=== PATIENT | female | born 1960 | race African-American/Black ===

== ENCOUNTER 2016-05-23 20:09 | Emergency (ER) | payer MEDICARE ==
[~2016-05-23] VITALS: Ht 165.1 cm; Wt 100.0 kg
[~2016-05-23 20:09] MED LIST: ALBU.5I; ALBU17I INH; ASPI81 PO; GLUC1000 PO; INSU1INJ14 SQ; LISI-363 PO; LORA-474 PO; LORT5TAB PO; MONT10TA2 PO; NITR0.4S SL; NOVOLOGP2 SQ; THEO300T31 PO
[2016-05-23 23:11] VITALS: BP 205/94; PULSE 85; RESP 16; O2SAT 94
[2016-05-23] MEDS ORDERED: NOVOINJ3 (23:15)
[2016-05-23] MEDS ORDERED: THEO300T14 PO (23:15)
[2016-05-23] MEDS ORDERED: METF500T PO (23:15)
[2016-05-23] MEDS ORDERED: INSU1INJ14 SQ (23:15)
[2016-05-23] MEDS ORDERED: ASPI81CH CHEW (23:15)
[2016-05-23] MEDS ORDERED: NOVOLOGP2 SQ (23:15)
[2016-05-23] MEDS ORDERED: SODIUM CHLORIDE 0.9% FLUSH 10 ML FLUSH IV FLUSH PRN (23:15)
[2016-05-23] MEDS ORDERED: LORA-474 PO (23:15)
[2016-05-23] MEDS ORDERED: MONT10TA2 PO (23:15)
[2016-05-23] MEDS ORDERED: LISI-515 PO (23:15)
[2016-05-23] MEDS ORDERED: HYDR-3111 PO (23:15)
[2016-05-23 23:16] VITALS: O2SAT 99
[2016-05-23 23:45] LABS: AUTOMATED NEUTROPHIL # 5.7 TH/MM3 (1.8-7.7); BASOPHIL # 0.2 TH/MM3 (0-0.2); BASOPHIL % 2.4 % (0.0-2.0); EOSINOPHIL # 0.5 TH/MM3 (0-0.4); EOSINOPHIL % 5.2 % (0.0-4.0); HEMATOCRIT 36.9 % (35.0-46.0); HEMO FLAGS DIFF FINAL; LYMPH % 27.5 % (9.0-44.0); LYMPHOCYTE # 2.6 TH/MM3 (1.0-4.8); MEAN CORPUSCULAR HEMOGLOBIN 25.8 PG (27.0-34.0); MEAN CORPUSCULAR HGB CONC 32.2 % (32.0-36.0); MONO % 4.7 % (0.0-8.0); NEUT % 60.2 % (16.0-70.0); PLATELET COUNT 247 TH/MM3 (150-450); RED BLOOD COUNT 4.62 MIL/MM3 (4.00-5.30); RED CELL DISTRIBUTION WIDTH 15.1 % (11.6-17.2); WHITE BLOOD COUNT 9.4 TH/MM3 (4.0-11.0)
[2016-05-23 23:49] LABS: BACTERIA, URINE RARE /hpf; BLOOD, URINE NEG (NEG); COMMENT (UR) CULT NOT INDICATED; CULTURE IF INDICATED CULT NOT INDICATED; GLUCOSE,URINE NEG (NEG); KETONE, URINE NEG (NEG); NITRITE,URINE NEG (NEG); PH, URINE 5.5 (5.0-8.5); SQUAMOUS EPITHELIAL CELL URINE 2 /hpf (0-5); URINE COLOR YELLOW (YELLW/STRAW)
[2016-05-23 23:54] LABS: APTT (PATIENT) 32.1 SEC (24.3-30.1)
[2016-05-24 00:06] LABS: ANION GAP 8 MEQ/L (5-15); AST (GOT) 11 U/L (15-37); BICARBONATE 31.9 MEQ/L (21.0-32.0); BLOOD UREA NITROGEN 7 MG/DL (7-18); CHLORIDE 102 MEQ/L (98-107); GLOMERULAR FILTRATION RATE 126 ML/MIN (>89); POTASSIUM 3.6 MEQ/L (3.5-5.1); SODIUM (NA) 142 MEQ/L (136-145)
[2016-05-24 00:09] LABS: ALKALINE PHOSPHATASE 89 U/L (45-117); ALT (GPT) 13 U/L (10-53); TOTAL BILIRUBIN ADULT 0.3 MG/DL (0.2-1.0)
--- NOTE | 2016-05-24 00:18 | PD ---
HPI Chief Complaint: Abdominal Pain Time Seen by Provider: 23:12 Travel History International Travel<30 days: No Contact w/Intl Traveler<30days: No Traveled to known affect area: No History of Present Illness HPI The patient is a 55 year old female who presents to the [facility] emergency department with a history of abdominal pain that began 4-5 days ago and has been gradually getting worse with time. She reports that the pain had been coming and going, however today it is been constant. She reports that it is worse with movement. She reports that is worse with coughing. She reports that she's had a tickle in her throat that induces a cough at times. She reports that the pain as an aching sensation. She reports that it made it difficult to sleep last night. She reports that the pain as a 7 out of 10 at baseline and 10 out of 10 with movement. She reports that over the last month and a half she has had diarrhea. She reports that she normally moves her bowels 4-5 times per day. She reports that she recently saw a GI doctor related to this and is scheduled for upper endoscopy on June 21. She reports that last year she did have an episode of colitis that was treated with medicine. She reports having nausea but no vomiting. He reports that over the last week she has had urinary frequency without dysuria or urinary urgency. The patient denies any congestion, recent fevers, neck pain, chest pain, shortness of breath, or neurologic symptoms. She denies any unusual food intake, foreign travel, recent antibiotic use, or sick contacts. [facility] Past Medical History Narrative Medical The patient's past medical history is significant for asthma, COPD, history of pulmonary edema, history of seizure disorder, history of diabetes mellitus, history of Charcot joint in the left leg for which she is not weightbearing and using a wheelchair, history of being immunosuppressed, anxiety disorder, arthritis, acid reflux, hyperlipidemia, depression, hypertension, nodules and cyst on her thyroid herniated disc in the low back, neuropathy, sleep apnea Arthritis: Yes Asthma: Yes Autoimmune Disease: Yes (IMMUNO SUPPRESSED) Blood Disorders: No Anxiety: Yes Depression: Yes Heart Rhythm Problems: No Cancer: No Cardiovascular Problems: Yes (, PULMONARY EDEMA x1, HX OF HEART CATH) High Cholesterol: Yes Chest Pain: Yes (01/17/11) Congestive Heart Failure: No COPD: Yes Cerebrovascular Accident: No Diabetes: Yes (TYPE II) Patient Takes Glucophage: Yes Diminished Hearing: No Diverticulitis: Yes Endocrine: Yes Gastrointestinal Disorders: Yes (HX OF GERD) GERD: Yes Genitourinary: No Headaches: No Hepatitis: No Hiatal Hernia: No Hypertension: Yes Immune Disorder: Yes ("DEPRESSED" IMMUNE SYSTEM) Kidney Stones: No Medical other: No Musculoskeletal: Yes (BULGING DISCS IN LOWER BACK, PAIN IN HANDS AND WRISTS) Neurologic: Yes (SEIZURES FOR LOW BLOOD SUGAR, NEUROPATHY) Psychiatric: Yes (hx of mild anxiety) Reproductive: Yes (HX OF HYSTERECTOMY LEFT CERVIX remains) Respiratory: Yes (SEVERE ASTHMA, COPD--[facility]ISITS, SLEEP APNEA, CPAP "SOMETIMES") Migraines: No Renal Failure: No Seizures: Yes (LAST SEIZURE DECEMBER 2005) Sleep Apnea: Yes (CPAP AT HOME) Thyroid Disease: Yes (NODULES AND CYSTS ON THYROID--SOMETIMES CAUSE DIFFICULTY SWALLOWING) Ulcer: No PNEUMOCCOCAL Vaccine (Year): 1 ?: Not Menopausal: Yes Past Surgical History Narrative Surgical The patient's past surgical history is significant for an appendectomy, cholecystectomy, appendectomy and adhesion lysis in 1991, 2 prior C-sections, Tesjch-c-Cyoj placement due to poor IV access, history of a nerve block, history of a right rotator cuff repair, history of cardiac catheterization. Abdominal Surgery: Yes (ADHESIONS R/T C-SECTIONS) AICD: No Appendectomy: Yes Body Medical Devices: INFUSAPORT R UPPER CHEST Cardiac Surgery: Yes (CARDIAC CATH) Cholecystectomy: Yes Ear Surgery: No Endocrine Surgery: No Eye Surgery: No Genitourinary Surgery: No Gynecologic Surgery: Yes (2 C-SECTIONS/HYSTERECTOMY 2000) Hysterectomy: Yes Joint Replacement: No Neurologic Surgery: Yes (NERVE BLOCKS) Oral Surgery: No Pacemaker: No Thoracic Surgery: No Other Surgery: Yes Social History Alcohol Use: Yes (occ.) Tobacco Use: No Substance Use: No Allergies-Medications (Allergen,Severity, Reaction): Coded Allergies: Bactroban (Verified Allergy, Severe, 05/23/16) oint caused a rash Cefprozil (Verified Allergy, Severe, RASH, 05/23/16) Darvon (Verified Allergy, Severe, RASH, 05/23/16) Diclofenac (Verified Allergy, Severe, RASH, 05/23/16) Erythromycin (Verified Allergy, Severe, RASH, 05/23/16) Latex (Verified Allergy, Severe, RESPIRATORY DISTRESS, 05/23/16) Penicillin (Verified Allergy, Severe, RESPIRATORY DISTRESS, 05/23/16) Tetracycline (Verified Allergy, Severe, RASH, 05/23/16) Vancomycin (Verified Allergy, Severe, RESPIRATORY DISTRESS, 05/23/16) Zithromax (Verified Allergy, Severe, RSAH, 05/23/16) Reported Meds & Prescriptions Reported Meds & Active Scripts Active Reported Aspirin 81 Mg Chew 162 Mg CHEW DAILY Vicodin (Hydrocodone-Acetaminophen) 5-300 Mg Tab 1 Tab PO Q4H PRN Ativan (Lorazepam) 1 Mg Tab 1 Mg PO DAILY PRN Theophylline Anhydrous ER (Theophylline) 300 Mg Tab 300 Mg PO Q12H Singulair (Montelukast Sodium) 10 Mg Tab 10 Mg PO HS Novolog Inj (Insulin Aspart) 1,000 Unit/10 Ml Vial 0 SQ DIRECTED Sliding Scale as directed. Novolog Flexpen Inj (Insulin Aspart) 300 Unit/3 Ml Pen 8 Units .ROUTE TIDAC Tresiba Flextouch Pen Inj (Insulin Degludec Inj) 300 unit/3 ML Pen 16 Units SQ HS Lisinopril 20 Mg Tab 20 Mg PO HS Metformin (Metformin HCl) 500 Mg Tab 500 Mg PO BIDPC With meals Review of Systems Except as stated in HPI: all other systems reviewed are Neg General / Constitutional: No: Fever Eyes: No: Visual changes HENT: No: Headaches Cardiovascular: No: Chest Pain or Discomfort Respiratory: No: Shortness of Breath Gastrointestinal: Positive: Nausea, Diarrhea, Abdominal Pain, Changes in Bowel Habits, No: Vomiting, Hematemesis, Hematochezia, Constipation, Indigestion, Loss of Appetite Genitourinary: No: Dysuria Musculoskeletal: No: Pain Skin: No Rash Neurologic: No: Weakness Psychiatric: No: Depression Endocrine: No: Polydipsia Hematologic/Lymphatic: No: Easy Bruising Physical Exam Narrative General: The patient is a well-developed well-nourished female in no acute distress. Head and Neck exam: Head is normocephalic atraumatic. Eyes: EOMI, pupils are equal round and reactive to light. Nose: Midline septum with pink mucous membranes Mouth: Dentition unremarkable. Moist mucus membranes. Posterior oropharynx is not erythematous. No tonsillar hypertrophy. Uvula midline. Airway patent. Neck: No palpable lymphadenopathy. No nuchal rigidity. No thyromegaly. Cardiovascular: Regular rate and rhythm without murmurs, gallops, or rubs. No pulse deficit to the extremities. Lungs: Clear to auscultation bilaterally. No wheezes, rhonchi, or rales. Abdomen: Soft, with tenderness on palpation in the right upper quadrant of the abdomen, no other tenderness on palpation of the other 3 quadrants of the abdomen. No guarding, rebound, or rigidity. Negative [place] sign. Normal bowel sounds are audible. No tenderness on palpation of McBurney's point. Extremities: No clubbing, cyanosis, or edema. The patient has a splint in place on the left lower extremity related to her history of Charcot joint and foot fracture. No calf tenderness on palpation. Back: No spinous process tenderness to palpation. No costovertebral angle tenderness to palpation. Neurologic Exam: Grossly nonfocal. Skin Exam: No rash noted. Intact skin that is warm and dry. Data Data Last Documented VS Vital Signs Date Time Temp Pulse Resp B/P Pulse Ox O2 Delivery O2 Flow Rate FiO2 05/23/16 23:16 99 Room Air 05/23/16 23:11 85 16 205/94 Orders Complete Blood Count With Diff (05/23/16 23:13) Comprehensive Metabolic Panel (05/23/16 23:13) Lipase (05/23/16 23:13) Lactic Acid (05/23/16 23:13) Prothrombin Time / Inr (Pt) (05/23/16 23:13) Act Partial Throm Time (Ptt) (05/23/16 23:13) Urinalysis - C+S If Indicated (05/23/16 23:13) Iv Access Insert/Monitor (05/23/16 23:13) Ecg Monitoring (05/23/16 23:13) Oximetry (05/23/16 23:13) Sodium Chloride 0.9% Flush (Ns Flush) (05/23/16 23:15) Electrocardiogram (05/23/16 23:13) C-Reactive Protein (Crp) (05/23/16 23:13) Ct Abd/Pel W/O Iv Contrast (05/23/16 23:13) Acetamin-Hydrocod 325-5 Mg ([place] 5-325 (05/24/16 02:15) Nitrofurantoin Monohyd Macrocr (Macrobid (05/24/16 02:15) Labs Laboratory Tests Test 05/23/16 05/23/16 23:38 23:40 White Blood Count 9.4 TH/MM3 Red Blood Count 4.62 MIL/MM3 Hemoglobin 11.9 GM/DL Hematocrit 36.9 % Mean Corpuscular Volume 80.0 FL Mean Corpuscular Hemoglobin 25.8 PG Mean Corpuscular Hemoglobin 32.2 % Concent Red Cell Distribution Width 15.1 % Platelet Count 247 TH/MM3 Mean Platelet Volume 7.9 FL Neutrophils (%) (Auto) 60.2 % Lymphocytes (%) (Auto) 27.5 % Monocytes (%) (Auto) 4.7 % Eosinophils (%) (Auto) 5.2 % Basophils (%) (Auto) 2.4 % Neutrophils # (Auto) 5.7 TH/MM3 Lymphocytes # (Auto) 2.6 TH/MM3 Monocytes # (Auto) 0.4 TH/MM3 Eosinophils # (Auto) 0.5 TH/MM3 Basophils # (Auto) 0.2 TH/MM3 CBC Comment DIFF FINAL Differential Comment Prothrombin Time 11.0 SEC Prothromb Time International 1.0 RATIO Ratio Activated Partial 32.1 SEC Thromboplast Time Sodium Level 142 MEQ/L Potassium Level 3.6 MEQ/L Chloride Level 102 MEQ/L Carbon Dioxide Level 31.9 MEQ/L Anion Gap 8 MEQ/L Blood Urea Nitrogen 7 MG/DL Creatinine 0.60 MG/DL Estimat Glomerular Filtration 126 ML/MIN Rate Random Glucose 119 MG/DL Lactic Acid Level 0.9 mmol/L Calcium Level 9.3 MG/DL Total Bilirubin 0.3 MG/DL Aspartate Amino Transf 11 U/L (AST/SGOT) Alanine Aminotransferase 13 U/L (ALT/SGPT) Alkaline Phosphatase 89 U/L C-Reactive Protein 0.99 MG/DL Total Protein 7.6 GM/DL Albumin 3.9 GM/DL Lipase 80 U/L Urine Color YELLOW Urine Turbidity CLEAR Urine pH 5.5 Urine Specific [place] 1.014 Urine Protein NEG mg/dL Urine Glucose (UA) NEG mg/dL Urine Ketones NEG mg/dL Urine Occult Blood NEG Urine Nitrite NEG Urine Bilirubin NEG Urine Urobilinogen LESS THAN 2.0 MG/DL Urine Leukocyte Esterase SMALL Urine RBC 1 /hpf Urine WBC 3 /hpf Urine Squamous Epithelial 2 /hpf Cells Urine Bacteria RARE /hpf Microscopic Urinalysis Comment CULT NOT INDICATED MDM Medical Decision Making Medical Screen Exam Complete: Yes Emergency Medical Condition: Yes Medical Record Reviewed: Yes Interpretation(s) Last Impressions Abdomen/Pelvis CT 05/23/16 2315 Signed Impressions: Service Date/Time: Tuesday, May 24, 2016 01:30 - CONCLUSION: Normal unenhanced examination. Alonso Simon MD Differential Diagnosis Colitis, versus gastroenteritis, versus pyelonephritis, versus musculoskeletal strain, versus kidney stone Narrative Course During the course of the patients emergency department visit, the patients history, examination, and differential diagnosis were reviewed with the patient. The patient had IV access obtained and blood work sent for analysis. The patient was placed on a neighborhood coordinator with oximetry and blood pressure monitoring. An EKG was done on arrival. The patient's EKG shows a sinus rhythm heart rate of 80. The patient was initially provided [-]. The patients laboratory studies were reviewed and remarkable for white count of 9.4, hemoglobin 11.9, platelets 247, 5.2 eosinophils, CMP is remarkable for glucose of 119, lactic acid 0.9, AST 11, C-reactive protein 0.99, lipase 80, PT 11, PTT 32.1, urinalysis shows small leukocyte esterase 3 wbc's 1 RBC, rare bacteria. The patient was treated with Macrobid 1 by mouth 1. Radiology studies were reviewed and remarkable for a CT scan of the abdomen and pelvis that shows a normal unenhanced examination. The patient was given Lortab 5 mg by mouth 1 for pain. The patient will be discharged home with a prescription for Macrobid. The patient is currently in the process of being worked up by a order control clerk blood bank for diarrhea. The patient was instructed regarding the importance of close follow-up with her primary care physician and return back to the ER if she develops any new or worsening symptoms. The patient is resting comfortably and feels better, is alert and in no distress. The patients results and examination findings were discussed with the patient. The repeat examination is unremarkable and benign. The history, exam, diagnostic testing, and current condition do not suggest any significant pathology to warrant further testing, continued ED treatment, admission, or surgical evaluation at this point. The vital signs have been stable. The patient does not have uncontrollable pain, intractable vomiting, or other significant symptoms. The patient's condition is stable and appropriate for discharge. The patient will pursue further outpatient evaluation with a primary care physician or other designated or consulting physician as indicated in the discharge instructions. The patient expressed understanding and was agreeable with this plan. Diagnosis Primary Impression: Abdominal pain Qualified Code: R10.11 - Right upper quadrant abdominal pain Additional Impression: Urinary tract infection Qualified Code: N39.0 - Urinary tract infection without hematuria, site unspecified Referrals: Regional Merchandising Manager 1 week Primary Care Physician 3 days Patient Instructions: Abdominal Pain (ED), General Instructions, Urinary Tract Infection in Women (ED) Med/Other Pt SpecificInfo: Prescription(s) given Disposition: DISCHARGE HOME Condition: Stable Nayla Lima MD May 24, 2016 00:18
--- NOTE | 2016-05-24 01:46 | RADRPT ---
EXAM DATE/TIME: 05/24/2016 01:30 [place] COMPARISON: No previous studies available for comparison. INDICATIONS : Right sided abdominal and back pain. ORAL CONTRAST: No oral contrast ingested. RADIATION DOSE: CTDIvol (mGy) MEDICAL HISTORY : Diabetes mellitus type 2. Renal calculi. Gastroesophageal reflux disease.COPD, hypertension, cardiac, asthma SURGICAL HISTORY : Hysterectomy. ENCOUNTER: Initial ACUITY: 2 days PAIN SCALE: 7/10 LOCATION: Right abdomen TECHNIQUE: Volumetric scanning of the abdomen and pelvis was performed. Using automated exposure control and ad justment of the mA and/or kV according to patient size, radiation dose was kept as low as reasonably achievable to obtain optimal diagnostic quality images. FINDINGS: LOWER LUNGS: The visualized lower lungs are clear. LIVER: Homogeneous density without lesion. There is no dilation of the biliary tree. No calcified [place] es. SPLEEN: Normal size without lesion. PANCREAS: Within normal limits. KIDNEYS: Normal in size and shape. There is no mass, stone, or hydronephrosis. ADRENAL GLANDS: Within normal limits. VASCULAR: There is no aortic aneurysm. BOWEL/MESENTERY: The stomach, small bowel, and colon demonstrate no acute abnormality. There is no free intraperitone al air or fluid. ABDOMINAL WALL: Within normal limits. RETROPERITONEUM: There is no lymphadenopathy. BLADDER: No wall thickening or mass. REPRODUCTIVE: Within normal limits. INGUINAL: There is no lymphadenopathy or hernia. MUSCULOSKELETAL: Within normal limits for patient age. CONCLUSION: Normal unenhanced examination. Alonso Simon MD on May 24, 2016 at 1:44 Board Certified Radiologist. This report was verified electronically.
[2016-05-24] MEDS ORDERED: MACR100C2 PO (02:11)
[2016-05-24] MEDS ORDERED: ACETAMINOPHEN/HYDROcodone 325 MG/5 MG TAB PO ONE (02:15)
[2016-05-24] MEDS ORDERED: NITROFURANTOIN MONOHYD MACROCR 100 MG CAP PO ONE (02:15)
--- NOTE | 2016-05-24 11:33 | EKG ---
Date Performed: 05/23/2016 Time Performed: 23:22:54 PTAGE: 55 years EKG: Sinus rhythm LOW QRS VOLTAGE IN PRECORDIAL LEADS PATTERN CONSISTENT WITH PULMONARY DISEASE ABNORMAL ECG PREVIOUS TRACING : 09/08/2014 20.28 Compared to prior tracing no significant change DOCTOR: oMo Robertson Interpretating Date/Time 05/24/2016 11:31:36
== END 2016-05-24 02:35 | disposition home or self-care (01) ==
LOC: NEPE 20:09
DX: R10.11 Right upper quadrant pain (principal); N39.0 Urinary tract infection, site not specified; E11.9 Type 2 diabetes mellitus without complications; J44.9 Chronic obstructive pulmonary disease, unspecified; G40.909 Epilepsy, unspecified, not intractable, without status epilepticus; J45.909 Unspecified asthma, uncomplicated; F32.9 Major depressive disorder, single episode, unspecified; E78.00 Pure hypercholesterolemia, unspecified; K21.9 Gastro-esophageal reflux disease without esophagitis; I10 Essential (primary) hypertension; R94.31 Abnormal electrocardiogram [ECG] [EKG]
CPT/HCPCS: 74176; 80053; 81001; 83605; 83690; 85025; 85610; 85730; 86140; 93005; 99284; J1642

== ENCOUNTER → 2016-06-21 | Day surgery (SDC) | payer MEDICARE ==
[~2016-06-21] MED LIST changes: -ALBU.5I; -ALBU17I INH; -ASPI81 PO; +ASPI81CH CHEW; -GLUC1000 PO; +HYDR-3111 PO; +LACTATED RINGER'S 1,000 ML BAG IV ONE; -LISI-363 PO; +LISI-515 PO; -LORT5TAB PO; +MACR100C2 PO; +METF500T PO; -NITR0.4S SL; +NOVOINJ3; +PROPOFOL 100 MG/10 ML INJ IV ONE; +THEO300T14 PO; -THEO300T31 PO
== END | disposition home or self-care (01) ==
LOC: ESDC 09:13
PROVIDERS: ATTEND Internal Medicine Gastroenterology
DX: R10.11 Right upper quadrant pain (principal); K29.70 Gastritis, unspecified, without bleeding; E11.9 Type 2 diabetes mellitus without complications; Z79.4 Long term (current) use of insulin
CPT/HCPCS: 00740; 43239; 82948; 88305; 88312; J1642; J3010; J7120